=== PATIENT | male | born 1985 | race American Indian/Alaskan Native ===

== ENCOUNTER 2017-04-23 19:55 | Emergency (ER) | payer SELFPAY ==
--- NOTE | 2017-04-23 21:31 | XRay Report ---
FINAL REPORT EXAM: XR KNEE 3V LT HISTORY: pain in the left knee TECHNIQUE: AP, tunnel, and lateral views of the left knee PRIORS: None. FINDINGS: No acute fracture or dislocation is seen. The soft tissues are unremarkable with no evidence for suprapatellar joint effusion. Joint spaces are maintained and bony mineralization is normal. IMPRESSION: Negative views of the left knee..
--- NOTE | 2017-04-24 01:28 | Emergency Department Report ---
ED Lower Extremity HPI - General Chief Complaint: Extremity Injury, Lower Stated Complaint: LEFT KNEE PAIN Time Seen by Provider: 04/24/17 01:23 Source: patient Mode of arrival: Ambulatory Limitations: No Limitations - History of Present Illness Initial Comments: This is a 32-year-old male, he is previously unknown to this provider, he reports a past history of meniscus injury, did not get surgically repaired, works as a second chef in a local restaurant. Presents to the ER with a complaint of left-sided knee pain which is atraumatic. The pain is on the lateral and medial aspects of the knee, aching, and increases with palpation and range of motion, and it decreases with rest. The pain does not radiate anywhere. No other complaints. MD Complaint: knee injury -: Gradual, This morning Injury: Knee: Left Type of Injury: unknown Severity: moderate Improves With: rest Worsens With: movement, palpation Associated Symptoms: able to partially bear weight - Related Data Previous Rx's Medication Instructions Recorded Last Taken Type Acetaminophen [Tylenol Arthritis] 650 mg PO Q6HR PRN #30 tablet.er 04/24/17 Unknown Rx Ibuprofen [Motrin] 600 mg PO Q8H PRN #30 tablet 04/24/17 Unknown Rx Allergies Allergy/AdvReac Type Severity Reaction Status Date / Time No Known Allergies Allergy Unverified 04/23/17 20:25 ED Review of Systems ROS: Stated complaint: LEFT KNEE PAIN Other details as noted in HPI Constitutional: denies: fever Eyes: denies: eye discharge ENT: denies: epistaxis Respiratory: denies: cough Cardiovascular: denies: chest pain Gastrointestinal: denies: abdominal pain Musculoskeletal: arthralgia, myalgia Skin: denies: lesions Neurological: denies: headache Psychiatric: as per HPI ED Past Medical Hx - Past Medical History Previous Medical History?: No - Surgical History Past Surgical History?: No - Social History Smoking Status: Current Every Day Smoker Substance Use Type: None - Medications Home Medications: Home Medications Medication Instructions Recorded Confirmed Last Taken Type Acetaminophen [Tylenol Arthritis] 650 mg PO Q6HR PRN #30 tablet.er 04/24/17 Unknown Rx Ibuprofen [Motrin] 600 mg PO Q8H PRN #30 tablet 04/24/17 Unknown Rx ED Physical Exam - General Limitations: No Limitations General appearance: alert, in no apparent distress - Head Head exam: Present: atraumatic, normocephalic - Eye Eye exam: Present: normal appearance, EOMI. Absent: nystagmus - ENT ENT exam: Present: normal exam, normal orophraynx, mucous membranes moist, normal external ear exam - Neck Neck exam: Present: normal inspection, full ROM. Absent: tenderness, meningismus - Respiratory Respiratory exam: Present: normal lung sounds bilaterally. Absent: respiratory distress, wheezes, rales, rhonchi, stridor, chest wall tenderness, accessory muscle use, decreased breath sounds, prolonged expiratory - Cardiovascular Cardiovascular Exam: Present: regular rate, normal rhythm, normal heart sounds. Absent: bradycardia, tachycardia, irregular rhythm, systolic murmur, diastolic murmur, rubs, gallop - GI/Abdominal GI/Abdominal exam: Present: soft, normal bowel sounds. Absent: distended, tenderness, guarding, rebound, rigid, pulsatile mass - Rectal Rectal exam: Present: deferred - Extremities Exam Extremities exam: Present: normal inspection, full ROM, normal capillary refill , other (the compartments are soft. 2+ pulses are noted in the bilateral upper and lower extremities. There is medial and lateral left-sided knee tenderness, compartments are soft, there is no palpable cord. There is pain with valgus and varus, there is no instability to the joint.). Absent: calf tenderness - Back Exam Back exam: Present: normal inspection, full ROM. Absent: tenderness, CVA tenderness (R), CVA tenderness (L), muscle spasm, paraspinal tenderness, vertebral tenderness - Neurological Exam Neurological exam: Present: alert, oriented X3, normal gait, other (Extraocular movements intact. Tongue midline. No facial droop. Facial sensation intact to light touch in the V1, V2, V3 distribution bilaterally. 5 and 5 strength in 4 extremities.. Sensation is intact to light touch in 4 extremities.). Absent : motor sensory deficit - Psychiatric Psychiatric exam: Present: normal affect, normal mood - Skin Skin exam: Present: warm, dry, intact, normal color. Absent: rash ED Course Vital Signs 04/23/17 20:26 Temperature 98.6 F Pulse Rate 90 Respiratory 16 Rate Blood Pressure 160/87 O2 Sat by Pulse 100 Oximetry ED Lower Extremity MDM - Lab Data Vital Signs 04/23/17 20:26 Temperature 98.6 F Pulse Rate 90 Respiratory 16 Rate Blood Pressure 160/87 O2 Sat by Pulse 100 Oximetry - Radiology Data Radiology results: report reviewed, image reviewed X-ray of the left knee is negative for acute disease - Medical Decision Making Differential diagnosis: Sprain, strain, fracture, dislocation, soft tissue injury Assessment and plan: 32-year-old male with left-sided knee pain, reproducible, no indication of infection, fracture or dislocation. X-ray of the knee is negative for fracture, patient will be placed in bulky [place], weightbearing as tolerated, as needed pain medication, he should follow up with outpatient orthopedics. Return precautions are reviewed. Critical care attestation.: If time is entered above; I have spent that time in minutes in the direct care of this critically ill patient, excluding procedure time. ED Disposition Clinical Impression: Left knee pain Disposition: [id number] TO HOME OR SELFCARE Is pt being admited?: No Does the pt Need Aspirin: No Condition: Stable Instructions: Arthralgia (ED) Additional Instructions: Rest and avoid heavy lifting. Avoid strenuous physical activity. Weightbearing as tolerated. Take pain medication as directed. Follow up with an orthopedist within the next 2 weeks. Return to the ER right away with new pain, worsened pain, migration of pain, fevers, chills, lethargy, irritability, projectile vomiting, weakness, change in mental status. Referrals: PRIMARY CARE, [Primary Care Provider] - 3-5 Days VLAD RICHARDSON MD [Staff Physician] - 3-5 Days Forms: Work/School Release Form(ED)
[2017-04-24] MEDS ORDERED: TYLENOL PO ONE (01:36)
[2017-04-24] MEDS ORDERED: MOTRIN PO ONE (01:36)
[2017-04-24 01:41] VITALS: BP 143/83
== END 2017-04-24 02:45 | disposition home or self-care (01) ==
LOC: ED 19:55
DX: M25.562 Pain in left knee (principal); F17.210 Nicotine dependence, cigarettes, uncomplicated
CPT/HCPCS: 99283